=== PATIENT | female | born 1995 ===

== ENCOUNTER 2024-06-01 11:01 | Outpatient (CLI) | payer OTHER | END 2024-06-01 13:06 | disposition home or self-care (01) | LOC: NST 11:01 | PROVIDERS: ATTEND Obstetrics & Gynecology | DX: Z34.83 Encounter for supervision of other normal pregnancy, third trimester (principal) ==

== ENCOUNTER 2024-06-07 07:59 | Outpatient (CLI) | payer OTHER | END 2024-06-07 09:05 | disposition home or self-care (01) | LOC: NST 07:59 | PROVIDERS: ATTEND Obstetrics & Gynecology Gynecology | DX: Z34.83 Encounter for supervision of other normal pregnancy, third trimester (principal) ==

== ENCOUNTER 2024-06-11 01:48 | Inpatient (IN) | payer OTHER ==
[2024-06-11] VITALS (12 sets, daily range): BP systolic 104–144; BP diastolic 64–84
[~2024-06-11] VITALS: Ht 175.3 cm; Wt 90.3 kg
[2024-06-11] MEDS ORDERED: PRENATAL TABLE1 EAC4 PO (02:13)
[2024-06-11] MEDS ORDERED: RINGERS SOLUTION,LACTATED 1,000 ML IV SCH (02:30)
[2024-06-11 03:01] LABS: URINE APPEARANCE Clear; URINE BILIRRUBIN Negative (NEGATIVE); URINE BLOOD Trace; URINE COLOR Yellow; URINE GLUCOSE Negative (NEGATIVE); URINE LEUKOCYTE Trace; URINE NITRATE Negative; URINE PROTEIN Negative (NEGATIVE)
[2024-06-11] MEDS ORDERED: OXYTOCIN 10 UNITS/ML VIAL IM STA (03:03)
[2024-06-11 03:04] LABS: URINE BACTERIA 2357.1 uL (0.0-1933); URINE EPITHELIAL CELLS 57.9 uL (0.0-38.8)
[2024-06-11 03:07] LABS: HEMATOCRIT 35.3 % (36.0-45.00); HEMOGLOBIN 12.7 g/dL (12.0-15.00); MEAN CELL VOLUME 77.8 fL (80.00-100.00); MEAN CORPUSCULAR HEMOGLOBIN 27.9 pg (27.00-32.0); MEAN CORPUSCULAR HGB CONC 35.9 g/dl (32.0-36.0); PLATELET COUNT 189 K/uL (150-450); RED BLOOD COUNT 4.53 M/uL (4.00-6.00); RED CELL DISTRIBUTION WIDTH 14.1 % (11.5-14.5)
[2024-06-11 03:14] LABS: URINE KETONE 40 (NEGATIVE); URINE MUCUS SCANT
[2024-06-11] MEDS ORDERED: OxyCODONE HCL/APAP UD (PERCOCET) PO PRN (03:15)
[2024-06-11] MEDS ORDERED: IBUprofen 400 MG TABLET PO PRN (03:15)
[2024-06-11 03:20] LABS: INR 0.97; PARTIAL THROMBOPLASTIN TIME 27.1 SECONDS (22.0-34.0); PROTHROMBIN TIME 10.6 SECONDS (9.0-11.5)
[2024-06-11 03:24] LABS: ALBUMIN 3.2 gm/dL (3.4-5.0); BILIRUBIN TOTAL 0.31 mg/dL (0.3-1.2); CALCIUM 9.4 mg/dL (8.5-10.1); CREATININE SERUM 0.58 mg/dL (0.55-1.02); GFR 124.7; POTASSIUM 3.83 mEq/L (3.5-5.1); TOTAL PROTEIN 7.2 gm/dL (6.4-8.2)
[2024-06-11] MEDS ORDERED: CHLORHEXIDINE GLUCONATE 120 ML BOTTLE TOP ONE (03:30)
[2024-06-11] MEDS ORDERED: ERYTHROMYCIN BASE OPHT 1GM EACH TUBE OP ONE (03:30)
[2024-06-11] MEDS ORDERED: LIDOCAINE HCL 1% 10ML VIAL IJ ONE (03:30)
[2024-06-11] MEDS ORDERED: OXYTOCIN 10 UNITS/ML VIAL IV ONE (03:30)
[2024-06-12 08:07] VITALS: BP 109/64
[2024-06-12 15:56] VITALS: BP 111/71
[2024-06-13 01:26] VITALS: BP 120/80
[2024-06-13 10:14] VITALS: BP 108/63; O2SAT 98
== END 2024-06-13 13:06 | disposition home or self-care (01) | DRG 807 ==
LOC: LDR 01:48 → OB/GYN 01:48
PROVIDERS: ADMIT Obstetrics & Gynecology; ATTEND Obstetrics & Gynecology
PROC: 10E0XZZ Delivery of Products of Conception, External Approach (ICD-10-PCS; principal; 2024-06-12)
PROC: 0UQG7ZZ Repair Vagina, Via Natural or Artificial Opening (ICD-10-PCS; 2024-06-12)
PROC: 4A1HXCZ Monitoring of Products of Conception, Cardiac Rate, External Approach (ICD-10-PCS; 2024-06-12)
DX: O71.4 Obstetric high vaginal laceration alone (principal); Z37.0 Single live birth; Z3A.38 38 weeks gestation of pregnancy; Z20.822 Contact with and (suspected) exposure to COVID-19

== ENCOUNTER 2025-04-19 14:53 | Outpatient (CLI) | payer OTHER ==
[~2025-04-19 14:53] MED LIST: PRENATAL TABLE1 EAC4 PO
== END 2025-04-19 15:00 | disposition home or self-care (01) ==
LOC: SONOGRAMA 14:53
PROVIDERS: ATTEND Obstetrics & Gynecology Maternal & Fetal Medicine
DX: N63.10 Unspecified lump in the right breast, unspecified quadrant (principal)